=== PATIENT | male | born 1975 | race Caucasian/White ===

== ENCOUNTER 2017-01-31 17:14 | Emergency (ER) | payer MEDICAID | END 2017-01-31 18:13 | disposition home or self-care (01) | LOC: D.ER 17:14 | DX: R06.00 Dyspnea, unspecified (principal); R05 Cough; I10 Essential (primary) hypertension ==

== ENCOUNTER → 2017-02-14 10:16 | Outpatient (CLI) | payer MEDICAID ==
[2017-02-14 11:07] LABS: % SATURATION 22 % (15-55); IRON 75 ug/dl (35-150); TOTAL IRON BIND CAPACITY 327 ug/dl (260-445); UNSAT IRON BIND CAPACITY 252 ug/dl (150-375)
[2017-02-15 09:17] LABS: ALPHA FETOPROTEIN -(TUMOR MRK) 1.5 ng/mL (0.0-8.3)
[2017-02-15 11:18] LABS: ANA REFLEX - DIRECT Negative (Negative)
== END | disposition home or self-care (01) ==
LOC: D.LAB 02-08 11:00
PROVIDERS: Internal Medicine Gastroenterology
DX: K76.0 Fatty (change of) liver, not elsewhere classified (principal); R74.8 Abnormal levels of other serum enzymes; K75.81 Nonalcoholic steatohepatitis (NASH)

== ENCOUNTER 2017-07-17 04:36 | Emergency (ER) | payer MEDICAID ==
[2017-07-17 05:36] LABS: BASOPHILS 0.6 % (0-2); EOSINOPHILS 2.9 % (0-7); HEMATOCRIT 43.5 % (42.0-54.0); HEMOGLOBIN 14.9 g/dL (13.5-17.5); IMMATURE GRANULOCYTES 0.2 % (0-5); LYMPHOCYTES 48.2 % (15-50); MCH 29.3 pg (26.0-34.0); MCHC 34.3 g/dL (31.0-37.0); MCV 85.5 fL (80.0-100.0); MEAN PLATELET VOLUME 9.4 fL (7.4-10.4); MONOCYTES 7.9 % (2-11); NEUTROPHILS 40.2 % (40-80); PLATELET COUNT 186 10x3/uL (130-400); RBC 5.09 10x6/uL (4.20-6.10); RDW 12.6 % (11.5-14.5); WBC 6.6 10x3/uL (4.8-10.8)
[2017-07-17 05:50] LABS: ALBUMIN 3.7 g/dL (3.4-5.0); ALKALINE PHOSPHATASE 97 U/L (46-116); ALT (SGPT) 49 U/L (10-68); AMYLASE - SERUM 61 U/L (25-115); BILIRUBIN - TOTAL 0.35 mg/dL (0.2-1.3); CALC OSMOLALITY 277 mosm/kg (275-300); CALCIUM 8.6 mg/dL (8.5-10.1); CARBON DIOXIDE 27.1 mmol/L (21.0-32.0); CHLORIDE - SERUM 101 mmol/L (98-107); GLUCOSE 166 mg/dL (74-106); LIPASE 138 U/L (73-393); POTASSIUM - SERUM 3.2 mmol/L (3.5-5.1); PROTEIN - SERUM 7.1 g/dL (6.4-8.2); SODIUM 138 mmol/L (136-145); UREA NITROGEN 8 mg/dL (7-18); eGFR NON AFRICAN AMERICAN 87 mL/min (90-120)
== END 2017-07-17 07:29 | disposition home or self-care (01) ==
LOC: D.ER 04:36
PROVIDERS: Family Medicine
DX: R11.10 Vomiting, unspecified (principal); K52.9 Noninfective gastroenteritis and colitis, unspecified